=== PATIENT | male | born 1945 | race Caucasian/White ===

== ENCOUNTER 2022-06-10 12:46 | Outpatient (CLI) | payer MEDICARE ==
[~2022-06-10 12:46] MED LIST: ACET-2615 PO; ALBU8HFA PO; APIX5TAB3 PO; ASCO500C18 PO; ATOR20TA PO; CELE200C PO; FERR324T4 PO; FLUT1AER; GABA-532 PO; SERT100T PO; TRAZ-256 PO; TRIA0.252 PO
== END 2022-06-10 23:59 | disposition home or self-care (01) ==
LOC: RAD 12:46
PROVIDERS: ATTEND Internal Medicine Cardiovascular Disease
DX: I08.3 Combined rheumatic disorders of mitral, aortic and tricuspid valves (principal); R06.02 Shortness of breath
CPT/HCPCS: 93306

== ENCOUNTER 2023-02-21 06:11 | Day surgery (SDC) | payer MEDICARE ==
[2023-02-20 14:59] LABS: BASOPHILS # (AUTO) 0.1 X10'3 (0-0.2); BASOPHILS % (AUTO) 0.8 % (0-1); EOSINOPHILS # (AUTO) 0.1 X10'3 (0-0.9); EOSINOPHILS % (AUTO) 1.9 % (0-6); HEMATOCRIT 39.2 % (42.0-52.0); HEMOGLOBIN 13.1 g/dl (14.0-17.9); LYMPHOCYTES # (AUTO) 1.8 X10'3 (1.1-4.8); LYMPHOCYTES % (AUTO) 23.6 % (21-51); MEAN CORPUSCULAR HEMOGLOBIN 31.5 PG (27.0-31.0); MEAN CORPUSCULAR HGB CONC 33.5 g/dL (33.0-36.5); MEAN CORPUSCULAR VOLUME 94.1 FL (78-98); MEAN PLATELET VOLUME 5.9 FL (7.4-10.4); MONOCYTES # (AUTO) 0.6 X10'3 (0-0.9); MONOCYTES % (AUTO) 7.5 % (2-12); NEUTROPHILS # (AUTO) 5.2 X10'3 (1.8-7.7); NEUTROPHILS % (AUTO) 66.2 % (42-75); PLATELET COUNT 216 X10'3 (140-440); RED BLOOD COUNT 4.17 X10'6 (4.70-6.10); RED CELL DISTRIBUTION WIDTH 13.1 % (11.5-14.5); WHITE BLOOD COUNT 7.8 X10'3 (4.5-11.0)
[2023-02-20 15:07] LABS: ALBUMIN 3.9 G/DL (3.4-5.0); ANION GAP 8 (8-16); BLOOD UREA NITROGEN 18 MG/DL (7-18); BUN/CREATININE RATIO 17.8 (10.0-20.0); CALCIUM 9.3 MG/DL (8.5-10.1); CHLORIDE 99 MMOL/L (99-107); CREATININE 1.01 MG/DL (0.60-1.10); GLUCOSE 105 MG/DL (70-104); POTASSIUM 4.3 MMOL/L (3.5-5.1); SODIUM 135 MMOL/L (135-145); TOTAL CARBON DIOXIDE 28.5 MMOL/L (24-32); eGFR 72 ML/MIN
[2023-02-20 15:09] LABS: APTT 31 SECONDS (22-32); PROTHROMBIN TIME 10.6 SECONDS (9.0-12.0)
[2023-02-21] VITALS (11 sets, daily range): BP systolic 92–134; BP diastolic 61–88; PULSE 70–71; RESP 10–16; TEMP 97.6; O2SAT 93–97
[~2023-02-21] VITALS: Ht 188 cm; Wt 63.6 kg
[2023-02-21] MEDS ORDERED: LORazepam 0.5 MG tablet PO PRN (06:25)
[2023-02-21] MEDS ORDERED: diphenhydrAMINE 25mg capsule PO PRN (06:25)
[2023-02-21] MEDS ORDERED: normal saline 1,000 ML IV SCH (06:25)
[2023-02-21] MEDS ORDERED: FLUT1BLS4 INH (06:51)
[2023-02-21] MEDS ORDERED: TRAZ-251 PO (06:51)
[2023-02-21] MEDS ORDERED: SOTA80TA73 PO (06:51)
[2023-02-21] MEDS ORDERED: LEVO75TA7 PO (06:51)
[2023-02-21] MEDS ORDERED: FLO0.4C PO (07:16)
[2023-02-21] MEDS ORDERED: ACET-890 PO (07:16)
[2023-02-21] MEDS ORDERED: TRIA0.252 PO (07:16)
[2023-02-21] MEDS ORDERED: midazolam 1 mg/ML 2ml injection ONE (07:32)
[2023-02-21] MEDS ORDERED: heparin 1,000unit/ml 10ml vial 10 ML ONE (07:32)
[2023-02-21] MEDS ORDERED: verapamil 2.5 mg/ml inj IV ONE (07:32)
[2023-02-21] MEDS ORDERED: LIDOcaine 1% (10mg/ml) 2ml vial ONE ×2 (07:32→07:58)
[2023-02-21] MEDS ORDERED: fentaNYL/PF 50MCG/1 ML 2ML syringe ONE (07:32)
[2023-02-21] MEDS ORDERED: iohexol 350 MG/ML 50ML vial IV ONE ×2 (07:32→08:47)
[2023-02-21] MEDS ORDERED: iohexol 350MG/ML 100ml bottle IV ONE (07:32)
[2023-02-21] MEDS ORDERED: nitroGLYCERIN 500mcg/5mL D5W 5 ML IV ONE (07:56)
[2023-02-21] MEDS ORDERED: proCHLORperazine 10 MG/2 ml inj ONE (08:02)
[2023-02-21] MEDS ORDERED: LIDOcaine 1% (10mg/ml)w/preservative inj. 20ml MDV ONE (08:17)
[2023-02-21] MEDS ORDERED: normal saline 1000ml 1,000 ML IV ONE (09:50)
== END 2023-02-21 13:10 | disposition home or self-care (01) ==
LOC: SSTAY O 06:11
PROVIDERS: ATTEND Internal Medicine Cardiovascular Disease
DX: I25.10 Atherosclerotic heart disease of native coronary artery without angina pectoris (principal); I10 Essential (primary) hypertension; E78.5 Hyperlipidemia, unspecified; I47.10 Supraventricular tachycardia, unspecified; D50.9 Iron deficiency anemia, unspecified; I48.0 Paroxysmal atrial fibrillation; G47.00 Insomnia, unspecified; G62.9 Polyneuropathy, unspecified; G89.29 Other chronic pain; I49.5 Sick sinus syndrome; Z79.01 Long term (current) use of anticoagulants; Z79.899 Other long term (current) drug therapy; Z98.890 Other specified postprocedural states; Z95.0 Presence of cardiac pacemaker
CPT/HCPCS: 36415; 76937; 80048; 85025; 85610; 85730; 93460; 99152; 99153; J0780; J1644; J2250; J3010; J3490; J7030; Q0163; Q9967; A6258; A6402; C1725; C1751; C1769; C1894